=== PATIENT | female | born 1975 | race Hispanic/Latino ===

== ENCOUNTER 2022-03-02 16:37 | Emergency (ER) | payer MEDICAID ==
[~2022-03-02] VITALS: Ht 162.6 cm; Wt 90.7 kg
[2022-03-02 16:54] VITALS: BP 153/95
[2022-03-02 17:25] LABS: APPEARANCE,URINE CLEAR (CLEAR); BILIRUBIN,URINE NEGATIVE (NEGATIVE); COLOR,URINE LIGHT-YELLOW (YELLOW); GLUCOSE, URINE (UA) >=1000 mg/dL (NEGATIVE); KETONES,URINE 5 mg/dL (NEGATIVE); LEUKOCYTE ESTERASE ,URINE NEGATIVE Leu/uL (NEGATIVE); NITRATE,URINE NEGATIVE (NEGATIVE); PH,URINE 5.5 (5.0-8.0); PROTEIN,URINE 30 mg/dL (NEGATIVE); UROBILINOGEN,URINE 0.2 mg/dL (0.2-1.0)
[2022-03-02 17:27] LABS: BACTERIA,URINE RARE /HPF (None Seen); MUCUS,URINE FEW LPF (None Seen); SQUAMOUS EPITHELIAL CELL,UR RARE /HPF (0-2)
[2022-03-02] MEDS ORDERED: ACET-66 PO (18:53)
[2022-03-02] MEDS ORDERED: MACR100 PO (18:53)
[2022-03-02] MEDS ORDERED: DEXAMETHASONE SOD PHOSPHATE 4 MG/ML 1ML VIAL IM ONE (19:00)
== END 2022-03-02 19:20 | disposition home or self-care (01) ==
LOC: EDH 16:37
DX: J02.9 Acute pharyngitis, unspecified (principal); E11.9 Type 2 diabetes mellitus without complications; Z88.0 Allergy status to penicillin; R35.0 Frequency of micturition; Z90.710 Acquired absence of both cervix and uterus; Z91.041 Radiographic dye allergy status
CPT/HCPCS: 99283; 87880; 81001; 96372; J1100

== ENCOUNTER 2024-05-20 20:03 | Emergency (ER) | payer MEDICAID ==
[~2024-05-20] VITALS: Ht 167.6 cm; Wt 92.1 kg
[~2024-05-20 20:03] MED LIST: ACET-66 PO; MACR100 PO
--- NOTE | 2024-05-20 20:34 | ERN ---
General Chief Complaint: Flu Symptoms Stated Complaint: BODYACHES Time Seen by MD: 20:10 History of Present Illness Initial Comments 48-year-old female comes in with feeling of weakness fevers and chills vomiting tachycardic and urinating constantly. She also has back pain back in her lower right back and total body pain. This is the 1st time she has these symptoms. Based on her fever and tachycardia a sepsis alert was called and standard labs were ordered. Patient's past medical history is type 2 diabetes fingerstick glu cose was 147. She states no chest pain and a little shortness of breath. The only medication she takes his metformin but she was recently transferred over to a medicine by her primary care doctor and she does not know the name of the new medication. Allergies: Coded Allergies: Iodinated Contrast Media (Unverified Allergy, Unknown, 03/02/22) Penicillins (Unverified Allergy, Unknown, 03/02/22) Home Meds Active Scripts Acetaminophen (Tylenol) 500 Mg Tab, 500 MG PO Q4PRN PRN for PAIN, #15 TAB Prov:FITTINGJOHANNAP 03/02/22 Nitrofurantoin/Nitrofuran Mac (Macrobid) 100 Mg Cap, 1 CAP PO BID for 7 Days, #14 CAP 0 Refills Prov:FITTINGJOHANNA 03/02/22 Past Medical History Past Medical History: Diabetes-Type II Past Surgical History: Hysterectomy Constitutional: (+) chills, (+) fever, (+) malaise, (+) weakness EENTM: (-) eye pain, (-) blurred vision, (-) tearing, (-) double vision, (-) ear pain, (-) ear discharge, (-) nose pain, (-) nose congestion, (-) throat pain, (-) Throat swelling, (-) mouth pain, (-) tooth pain, (-) mouth swelling, (-) other documentation Respiratory: (-) cough, (-) orthopnea, (-) short of breath, (-) stridor, (-) wheezing, (-) other documentation Cardiovascular: (-) chest pain, (-) edema, (-) palpitations, (-) syncope, (-) dyspnea on exertion, (-) other documentation Gastrointestinal/Abdominal: (+) nausea, (+) vomiting Genitourinary: (-) vaginal discharge, (-) vaginal bleeding, (-) dysuria, (-) frequency, (-) hematuria, (-) pain, (-) other documentation Musculoskeletal: (-) Neck pain, (-) back pain, (-) Flank Pain, (-) joint pain, (-) joint swelling, (-) muscle pain, (-) muscle stiffness, (-) gout, (-) other documentation Physical Exam General Appearance: (+) moderate distress General Appearance comment Diaphoretic weak complaining of feeling cold. Head/Face Trauma: No Eye: bilateral eye normal inspection, bilateral eye PERRL, bilateral eye EOMI Ear, Nose, Throat: (+) hearing grossly normal, (+) normal ENT inspection, (+) moist mucous membraine Neck: (+) normal inspection Respiratory: (+) chest non-tender, (+) lungs clear, (+) well ventilated Heart: (+) tachycardia Vascular: (+) no edema, (+) normal peripheral pulse, (+) no JVD Gastrointestinal: (+) soft, (+) non-tender, (+) bowel sound present Back: (+) no CVA tenderness IVF Sepsis Management IVF Sepsis Management BMI >30kg/m2?: Yes IVF calculated by IBW?: Yes Results Laboratory and Microbiology Lab and Micro Result Laboratory Tests Test 05/20/24 20:21 05/20/24 20:34 Whole Blood Glucose 147 MG/DL (70-110) H White Blood Count 8.9 K/uL (4.8-10.8) Red Blood Count 5.55 MIL/uL (4.00-5.50) H Hemoglobin 15.5 g/dL (12.0-16.0) Hematocrit 47.2 % (36-48) Mean Corpuscular Volume 85.0 fL (79-99) Mean Corpuscular Hemoglobin 27.9 pg (27.0-33.0) Mean Corpuscular Hemoglobin Concent 32.8 g/dL (32.0-36.0) Red Cell Distribution Width 12.8 % (11.0-15.5) Platelet Count 290 K/uL (130-400) Mean Platelet Volume 10.4 fL (7.5-10.5) Immature Granulocyte % (Auto) 0.2 % (0-1) Neutrophils (%) (Auto) 79.3 % (40.0-77.0) H Lymphocytes (%) (Auto) 11.4 % (21.0-51.0) L Monocytes (%) (Auto) 6.2 % (3.0-13.0) Eosinophils (%) (Auto) 2.4 % (0.0-8.0) Basophils (%) (Auto) 0.5 % (0.0-5.0) Neutrophils # (Auto) 7.0 K/uL (1.8-7.7) Lymphocytes # (Auto) 1.0 K/uL (1.0-4.8) Monocytes # (Auto) 0.6 K/uL (0.1-1.0) Eosinophils # (Auto) 0.21 K/uL (0.00-0.70) Basophils # (Auto) 0.04 K/uL (0.00-0.20) Absolute Immature Granulocyte (auto 0.02 K/uL (0-1) Nucleated Red Blood Cells 0.0 % (0.0-0.19) Sodium Level 138 mmol/L (136-145) Potassium Level 3.8 mmol/L (3.5-5.1) Chloride Level 101 mmol/L (101-111) Carbon Dioxide Level 25 mmol/L (21-32) Blood Urea Nitrogen 16 mg/dL (7-18) Creatinine 0.8 mg/dL (0.5-1.0) Glomerular Filtration Rate Calc 90 mL/min (>90) Random Glucose 147 mg/dL (70-105) H Lactic Acid Level 1.9 mmol/L (0.8-2.5) Total Calcium 8.9 mg/dL (8.5-10.1) [facility] Sepsis labs written for. Well discussing to other patients with the hospitalist I mentioned the sepsis alert patient. The hospitalist agreed to admit the patient even though the workup has not been completed. ED Course Orders Procedure Category Date Status Time Cbc With Differential LAB 05/20/24 Complete 20:15 Blood Cult FELICIA 05/20/24 Logged 20:15 Urinalysis Profile LAB 05/20/24 Logged 20:15 0.9%Nacl 1000ml (Ns PHA 05/20/24 In Process 1000ml) 20:30 Troponin I High LAB 05/20/24 In Process Sensitivity 20:15 Lactic Acid LAB 05/20/24 Complete 20:15 Basic Metabolic Panel LAB 05/20/24 Complete 20:15 Bedside Glucose CPOE 05/20/24 Transmitted Fingerstick 20:15 Influenza Type A & B, LAB 05/20/24 In Process Rapid 20:33 Covid Rna Naat LAB 05/20/24 In Process 20:33 Rapid (Group A Strep) LAB 05/20/24 In Process 20:34 Acetaminophen 500mg PHA 05/20/24 In Process Tab (Tylenol 500mg T 21:00 Procalcitonin LAB 05/20/24 In Process 20:34 Chest 1vw RAD 05/20/24 Logged 20:34 Current Medications Medications (Trade) Dose Ordered Sig/Jacinto Route PRN Reason Start Time Stop Time Status Last Admin Dose Admin Acetaminophen (TYLenol 500MG TAB) 500 mg Q6H PRN PO MILD PAIN (1-3) 05/20/24 21:00 06/19/24 20:59 Sodium Chloride 2,763 ml @ 921 mls/hr ONCE ONCE IV 05/20/24 20:30 05/20/24 23:29 Vital Signs Date Time Temp Pulse Resp B/P (MAP) Pulse Ox O2 Delivery O2 Flow Rate FiO2 05/20/24 20:05 101.5 139 22 131/82 95 Room Air DX & DISP Disposition: Inpatient Departure Impression: Primary Impression: Sepsis Additional Impression: Urinary frequency Condition: Stable Referrals: ORTIZ DAVIS MD (PCP) ANEL WOLF MD May 20, 2024 20:34
[2024-05-20 20:56] LABS: BASOPHILS # (AUTO) 0.04 K/uL (0.00-0.20); BASOPHILS % (AUTO) 0.5 % (0.0-5.0); EOSINOPHILS # (AUTO) 0.21 K/uL (0.00-0.70); EOSINOPHILS % (AUTO) 2.4 % (0.0-8.0); HEMATOCRIT 47.2 % (36-48); IMMATURE GRANULOCYTE ABSOLUTE 0.02 K/uL (0-1); LYMPHOCYTES % (AUTO) 11.4 % (21.0-51.0); MEAN CORPUSCULAR HEMOGLOBIN 27.9 pg (27.0-33.0); MEAN CORPUSCULAR HGB CONC 32.8 g/dL (32.0-36.0); MONOCYTES # (AUTO) 0.6 K/uL (0.1-1.0); MONOCYTES % (AUTO) 6.2 % (3.0-13.0); NEUTROPHILS % (AUTO) 79.3 % (40.0-77.0); PLATELET COUNT (AUTO) 290 K/uL (130-400); RED BLOOD CELL COUNT(AUTO) 5.55 MIL/uL (4.00-5.50); RED CELL DISTRIBUTION WIDTH 12.8 % (11.0-15.5); WHITE BLOOD COUNT (AUTO) 8.9 K/uL (4.8-10.8)
[2024-05-20] MEDS ORDERED: acetaMINOPHEN 500 MG TABLET PO PRN (21:00)
[2024-05-20 21:06] LABS: CREATININE 0.8 mg/dL (0.5-1.0); POTASSIUM 3.8 mmol/L (3.5-5.1)
[2024-05-20 21:15] LABS: SARS-CoV-2, RNA, NAAT NEGATIVE SARS CoV-2 (NEGATIVE)
[2024-05-20 21:24] LABS: INFLUENZA TYPE A Negative For Type A (NEGATIVE); INFLUENZA TYPE B Negative For Type B (NEGATIVE)
[2024-05-20 21:36] VITALS: TEMP 101.5
[2024-05-20] MEDS: acetaMINOPHEN 500 MG TABLET PO PRN (21:36)
--- NOTE | 2024-05-20 21:56 | NUR ---
PATIENT REPORTS FEELING ILL SINCE YESTERDAY, TODAY BEGAN WITH BODY ACHES AND CHILLS. REPORTS URINARY FREQUENCY ONSET YEATERDAY
[2024-05-20 22:08] LABS: APPEARANCE,URINE CLEAR (CLEAR); BILIRUBIN,URINE NEGATIVE (NEGATIVE); COLOR,URINE YELLOW (YELLOW); GLUCOSE, URINE (UA) >=1000 mg/dL (NEGATIVE); KETONES,URINE >=80 mg/dL (NEGATIVE); LEUKOCYTE ESTERASE ,URINE NEGATIVE Leu/uL (NEGATIVE); NITRATE,URINE NEGATIVE (NEGATIVE); OCCULT BLOOD,URINE TRACE-INTACT (NEGATIVE); PH,URINE 5.5 (5.0-8.0); PROTEIN,URINE TRACE mg/dL (NEGATIVE); UROBILINOGEN,URINE 0.2 mg/dL (0.2-1.0)
[2024-05-20 22:12] LABS: ADD UA MICROSCOPIC YES
[2024-05-20 22:16] LABS: SQUAMOUS EPITHELIAL CELL,UR RARE /HPF (0-2)
[2024-05-20 23:02] VITALS: BP 102/62; PULSE 99; RESP 18; TEMP 98.1; O2SAT 96
--- NOTE | 2024-05-21 08:17 | HMCIMG ---
PORTABLE CHEST RADIOGRAPH INDICATION: sob COMPARISON: None FINDINGS: Heart size is normal. The pulmonary vascularity and cora appear normal. No abnormal pulmonary parenchymal opacity or consolidation identified. No significant pleural effusion noted. No pneumothorax detected. IMPRESSION: No radiographic evidence for any acute cardiopulmonary process.
== END 2024-05-20 23:03 | disposition home or self-care (01) ==
LOC: EDH 20:03
DX: A41.9 Sepsis, unspecified organism (principal); N39.0 Urinary tract infection, site not specified; E11.9 Type 2 diabetes mellitus without complications; Z88.0 Allergy status to penicillin; Z90.710 Acquired absence of both cervix and uterus; Z91.041 Radiographic dye allergy status; Z20.822 Contact with and (suspected) exposure to COVID-19
CPT/HCPCS: 99285; 71045; 87635; 84484; 80048; 85025; 87040 ×2; 87880; 87804 ×2; 82948; 83605; 81001; 36415; 84145; J7030